=== PATIENT | male | born 1965 | race African-American/Black ===

== ENCOUNTER 2016-05-06 14:20 | Emergency (ER) | payer OTHER ==
[~2016-05-06] VITALS: Ht 172.7 cm; Wt 63.5 kg
[2016-05-06 15:40] LABS: ANION GAP 9 (5-14); CALCIUM, SERUM 8.8 mg/dL (8.5-10.1); CARBON DIOXIDE 34 mmol/L (21-32); CHLORIDE 101 mmol/L (98-107); CREATININE 0.9 mg/dL (0.6-1.3); GFR 107 mL/min (>60); GLUCOSE 89 mg/dL (74-106); POTASSIUM 4.7 mmol/L (3.5-5.1); SODIUM SERUM 139 mmol/L (136-145); UREA NITROGEN, BLOOD 20 mg/dL (7-18)
[2016-05-06 15:46] LABS: BASOPHILS # (AUTO) 0.1 /CMM (0.0-0.2); BASOPHILS % (AUTO) 0.8 % (0.0-2.0); DIFF TOTAL % 100 %; EOSINOPHILS # (AUTO) 0.1 /CMM (0.0-0.7); EOSINOPHILS % (AUTO) 1.4 % (0.0-6.0); HEMATOCRIT 43 % (39-51); HEMOGLOBIN 13.9 g/dL (13.5-17.5); LYMPHOCYTES # (AUTO) 2.7 /CMM (0.8-4.8); LYMPHOCYTES % (AUTO) 40.5 % (20.0-44.0); MEAN CORPUSCULAR HEMOGLOBIN 26 PG (26.0-33.0); MEAN CORPUSCULAR HGB CONC 32 g/dl (31.0-36.0); MEAN CORPUSCULAR VOLUME 81 fL (80-96); MONOCYTES # (AUTO) 0.5 /CMM (0.1-1.30); NEUTROPHILS # (AUTO) 3.3 /CMM (1.8-8.9); NEUTROPHILS % (AUTO) 49.3 % (43.0-81.0); PLATELET COUNT (AUTO) 274 /CMM (150-450); RED BLOOD CELL COUNT(AUTO) 5.37 MIL/uL (4.5-6.0); WHITE BLOOD COUNT (AUTO) 6.8 K/uL (4.3-11.0)
[2016-05-06 15:46] LABS: CANNABINOID, URINE NEGATIVE (NEGATIVE); PHENCYCLIDINE SCREEN,URINE NEGATIVE (NEGATIVE)
[2016-05-06 16:22] VITALS: BP 117/71
== END 2016-05-06 16:24 ==
LOC: ER 14:22
DX: F99 Mental disorder, not otherwise specified (principal); J45.909 Unspecified asthma, uncomplicated; K21.9 Gastro-esophageal reflux disease without esophagitis; F31.9 Bipolar disorder, unspecified; F32.9 Major depressive disorder, single episode, unspecified; M19.90 Unspecified osteoarthritis, unspecified site; F22 Delusional disorders; F17.200 Nicotine dependence, unspecified, uncomplicated; Z90.89 Acquired absence of other organs
CPT/HCPCS: 36415; 80048-TC; 80305; 85025-TC; A4606; G6040-TC; Z7610

== ENCOUNTER 2018-06-20 12:32 | Emergency (ER) | payer OTHER ==
[~2018-06-20] VITALS: Ht 172.7 cm; Wt 65.8 kg
--- NOTE | 2018-06-20 12:48 | NUR ---
PT CAME FOR WOUND CHECK ON LEFT CALF. WOUND IS SMALL, ROUND, WELL-APROXIMATED AND OPEN TO AIR. HAS SOME SCABBING AROUND THE EDGE, -DRAINAGE. PT IS AMBULATORY, NAD, MADE COMFORTABLE. READY FOR EVAL.
--- NOTE | 2018-06-20 12:53 | NUR ---
CALLED [facility] TO FIND A BED FOR PT
[2018-06-20 13:00] LABS: BASOPHILS # (AUTO) 0.1 /CMM (0.0-0.2); BASOPHILS % (AUTO) 0.8 % (0.0-2.0); HEMATOCRIT 45 % (39-51); HEMOGLOBIN 14.3 g/dL (13.5-17.5); LYMPHOCYTES # (AUTO) 1.6 /CMM (0.8-4.8); LYMPHOCYTES % (AUTO) 24.4 % (20.0-44.0); MEAN CORPUSCULAR HGB CONC 32 g/dl (31.0-36.0); MEAN CORPUSCULAR VOLUME 83 fL (80-96); MONOCYTES # (AUTO) 0.5 /CMM (0.1-1.30); MONOCYTES % (AUTO) 7.5 % (2.0-12.0); NEUTROPHILS # (AUTO) 4.3 /CMM (1.8-8.9); NEUTROPHILS % (AUTO) 66.3 % (43.0-81.0); PLATELET COUNT (AUTO) 332 /CMM (150-450); WHITE BLOOD COUNT (AUTO) 6.5 K/uL (4.3-11.0)
--- NOTE | 2018-06-20 13:04 | NUR ---
FOOD TRAY REQUESTED FROM DIETARY
[2018-06-20 13:08] LABS: CALCIUM, SERUM 8.9 mg/dL (8.5-10.1); CARBON DIOXIDE 34 mmol/L (21-32); CHLORIDE 104 mmol/L (98-107); GLUCOSE 74 mg/dL (74-106); SODIUM SERUM 140 mmol/L (136-145); UREA NITROGEN, BLOOD 18 mg/dL (7-18)
--- NOTE | 2018-06-20 13:10 | NUR ---
FOOD TRAY PROVIDED
[2018-06-20 13:13] LABS: ACETAMINOPHEN < 2 ug/ml (10-30); ALANINE AMINOTRANSFERASE 20 U/L (12-78); ALBUMIN 3.4 g/dL (3.4-5.0); ALCOHOL, BLOOD < 3 mg/dL (0-0); ALKALINE PHOSPHATASE 94 U/L (46-116); ASPARTATE AMINOTRANSFERASE 12 U/L (15-37); BILIRUBIN,DIRECT 0.1 mg/dL (0.0-0.2); BILIRUBIN,TOTAL 0.2 mg/dL (0.2-1.0); SALICYLATE 1.3 mg/dL (2.8-20.0); TOTAL PROTEIN, SERUM 6.9 g/dL (6.4-8.2)
--- NOTE | 2018-06-20 13:27 | NUR ---
CALLED [facility] CONFIRMING LAB REPORT RECEIVED
--- NOTE | 2018-06-20 13:48 | NUR ---
URINE COLLECTED AND SENT TO STAT LAB
[2018-06-20 13:52] LABS: APPEARANCE,URINE Hazy (CLEAR); BILIRUBIN,URINE Negative (NEGATIVE); BLOOD, URINE Negative Ery/uL (NEGATIVE); COLOR,URINE Yellow (YELLOW); KETONES,URINE Trace (NEGATIVE); LEUKOCYTE ESTERASE ,URINE Negative (NEGATIVE); NITRITE, URINE Negative (NEGATIVE); PH,URINE 5.5 (5.0-8.0); PROTEIN,URINE Negative (NEGATIVE); UGLUCOSE Negative (NEGATIVE)
[2018-06-20 14:02] LABS: BACTERIA,URINE None seen /HPF (None Seen); SQUAMOUS EPITHELIAL CELL,UR Few /HPF (None Seen); WBC,URINE 0-2 /HPF (0-3)
--- NOTE | 2018-06-20 14:22 | NUR ---
Patient is resting comfortably in bed with eyes closed. Easily aroused. VSS
[2018-06-20 14:43] VITALS: BP 132/78
--- NOTE | 2018-06-20 14:54 | NUR ---
[facility] CONFIRMED THAT THEIR TRANSPORT WILL ARRIVE WITHIN 30 MIN
--- NOTE | 2018-06-20 15:42 | NUR ---
REPORT GIVEN TO LORENZA CHATTERJEE, AND SHANAE AT [facility] FOR DAR
--- NOTE | 2018-06-20 15:45 | NUR ---
PT LEFT WITHOUT SIGNING AND RECEIVING DISCHARGE PAPERS
== END 2018-06-20 15:42 ==
LOC: ER 12:38
DX: F99 Mental disorder, not otherwise specified (principal); J45.909 Unspecified asthma, uncomplicated; K21.9 Gastro-esophageal reflux disease without esophagitis; F31.9 Bipolar disorder, unspecified; F22 Delusional disorders; M19.90 Unspecified osteoarthritis, unspecified site; F17.200 Nicotine dependence, unspecified, uncomplicated; Z98.890 Other specified postprocedural states; Z90.89 Acquired absence of other organs
CPT/HCPCS: 36415; 80048-TC; 80076-TC; 80305; 81000-TC; 85025-TC; G0480

== ENCOUNTER 2018-07-04 15:36 | Emergency (ER) | payer OTHER ==
[~2018-07-04] VITALS: Ht 170.2 cm; Wt 61.2 kg
[2018-07-04 19:13] LABS: BASOPHILS # (AUTO) 0.1 /CMM (0.0-0.2); BASOPHILS % (AUTO) 0.9 % (0.0-2.0); EOSINOPHILS % (AUTO) 1.1 % (0.0-6.0); HEMATOCRIT 44 % (39-51); HEMOGLOBIN 14.1 g/dL (13.5-17.5); LYMPHOCYTES # (AUTO) 2.6 /CMM (0.8-4.8); LYMPHOCYTES % (AUTO) 26.7 % (20.0-44.0); MEAN CORPUSCULAR HGB CONC 32 g/dl (31.0-36.0); MEAN CORPUSCULAR VOLUME 83 fL (80-96); MONOCYTES # (AUTO) 0.7 /CMM (0.1-1.30); MONOCYTES % (AUTO) 7.6 % (2.0-12.0); NEUTROPHILS # (AUTO) 6.1 /CMM (1.8-8.9); NEUTROPHILS % (AUTO) 63.7 % (43.0-81.0); PLATELET COUNT (AUTO) 244 /CMM (150-450); RED BLOOD CELL COUNT(AUTO) 5.33 MIL/uL (4.5-6.0); WHITE BLOOD COUNT (AUTO) 9.6 K/uL (4.3-11.0)
[2018-07-04 19:20] LABS: CARBON DIOXIDE 31 mmol/L (21-32); CHLORIDE 103 mmol/L (98-107); GLUCOSE 118 mg/dL (74-106); POTASSIUM 4.1 mmol/L (3.5-5.1); SODIUM SERUM 138 mmol/L (136-145); UREA NITROGEN, BLOOD 23 mg/dL (7-18)
[2018-07-04 19:26] LABS: ALANINE AMINOTRANSFERASE 63 U/L (12-78); ALBUMIN 3.6 g/dL (3.4-5.0); ALCOHOL, BLOOD < 3 mg/dL (0-0); ALKALINE PHOSPHATASE 86 U/L (46-116); ASPARTATE AMINOTRANSFERASE 29 U/L (15-37); BILIRUBIN,DIRECT 0.1 mg/dL (0.0-0.2); BILIRUBIN,TOTAL 0.2 mg/dL (0.2-1.0); TOTAL PROTEIN, SERUM 6.9 g/dL (6.4-8.2)
[2018-07-04 19:27] LABS: ACETAMINOPHEN 0 ug/ml (10-30); SALICYLATE 1.3 mg/dL (2.8-20.0)
[2018-07-04] MEDS ORDERED: IBUPROFEN 600 MG TABLET PO ONE ×2 (19:30→19:49)
--- NOTE | 2018-07-04 19:56 | NUR ---
Psych "SI x1wk -Plan Traffic. I need medical clearance I went to [facility] earlier and was told I need a medical clearance ". ASSUMED CARE. PT AAOX3, VSS. PT SEEN & EVAL'D BY ABDIFATAH PRIETO. PT CALM & COOPERATIVE, NAD NOTED @ THIS TIME. MEDICATED ORDERED. WILL CONT TO MONITOR. YANET @ BS.
[2018-07-04 20:05] LABS: APPEARANCE,URINE Clear (CLEAR); BILIRUBIN,URINE Negative (NEGATIVE); BLOOD, URINE Trace-intact Ery/uL (NEGATIVE); COLOR,URINE Yellow (YELLOW); KETONES,URINE Negative (NEGATIVE); LEUKOCYTE ESTERASE ,URINE Negative (NEGATIVE); NITRITE, URINE Negative (NEGATIVE); PH,URINE 6.5 (5.0-8.0); PROTEIN,URINE Negative (NEGATIVE); UGLUCOSE Negative (NEGATIVE); UROBILINOGEN,URINE 0.2 EU/dL (0.2)
[2018-07-04 20:32] LABS: BACTERIA,URINE Few /HPF (None Seen); SQUAMOUS EPITHELIAL CELL,UR Few /HPF (None Seen); WBC,URINE 0-2 /HPF (0-3)
[2018-07-04 20:33] LABS: MUCUS,URINE Few /LPF (None Seen)
--- NOTE | 2018-07-04 21:30 | NUR ---
PT CALM, WATCHING TV, NAD NOTED @ THIS TIME. SITTER @ BS.
--- NOTE | 2018-07-04 23:33 | NUR ---
CALLED SINDI TO SET UP [facility] TRANSPORT TRIP#[id number] ETA [phone]
--- NOTE | 2018-07-04 23:44 | NUR ---
PT CALM, WATCHING TV, NAD NOTED @ THIS TIME. SITTER @ BS.
[2018-07-04 23:45] VITALS: BP 127/74
--- NOTE | 2018-07-05 00:04 | NUR ---
REPORT GIVEN TO CARITO HANNA @ [facility] FOR CONT OF CARE.
== END 2018-07-05 00:06 ==
LOC: ER 15:44
DX: R45.851 Suicidal ideations (principal); F32.9 Major depressive disorder, single episode, unspecified; J45.909 Unspecified asthma, uncomplicated; K21.9 Gastro-esophageal reflux disease without esophagitis; F22 Delusional disorders; M19.90 Unspecified osteoarthritis, unspecified site; F17.200 Nicotine dependence, unspecified, uncomplicated; Z90.89 Acquired absence of other organs; Z98.890 Other specified postprocedural states; Z91.011 Allergy to milk products; Z59.0 Homelessness
CPT/HCPCS: 36415; 80048; 80076; 80305; 80307; 80329; 81001; 85025; 99285; G0480; 81000-TC

== ENCOUNTER 2019-04-15 09:21 | Emergency (ER) | payer OTHER ==
[~2019-04-15] VITALS: Ht 170.2 cm; Wt 61.2 kg
--- NOTE | 2019-04-15 09:26 | NUR ---
CAME IM FOR COUGH, FLU LIKE SX, TO ER BED 12, HOOKED TO MONITOR, CHANGED TO HOSP GOW, PROVIDED W JERMAINE SCHWARZ, AWAITING MD DODGE
--- NOTE | 2019-04-15 09:34 | NUR ---
DR BARRERA AT BEDSIDE
[2019-04-15] MEDS ORDERED: IPRATROPIUM NEB FS 0.5 MG/2.5 ML AMPUL.NEB NEB ONE (10:00)
[2019-04-15] MEDS ORDERED: ALBUTEROL FS 2.5 MG/3 ML VIAL.NEB NEB ONE (10:00)
[2019-04-15] MEDS ORDERED: ALBUTEROL FS 2.5 MG/3 ML VIAL.NEB ONE (10:08)
[2019-04-15] MEDS ORDERED: IPRATROPIUM NEB FS 0.5 MG/2.5 ML AMPUL.NEB ONE (10:08)
--- NOTE | 2019-04-15 11:08 | NUR ---
PATIENT CLAIMS TO BE SUICIDAL +PLAN STATES "GUN" UNABLE TO GIVE DETAILS. DR. BARRERA MADE AWARE.
[2019-04-15 11:23] LABS: APPEARANCE,URINE Clear (CLEAR); BILIRUBIN,URINE Negative (NEGATIVE); BLOOD, URINE Trace-intact Ery/uL (NEGATIVE); COLOR,URINE Yellow (YELLOW); KETONES,URINE Negative (NEGATIVE); LEUKOCYTE ESTERASE ,URINE Negative (NEGATIVE); NITRITE, URINE Negative (NEGATIVE); PROTEIN,URINE Negative (NEGATIVE); UGLUCOSE Negative (NEGATIVE); UROBILINOGEN,URINE 0.2 EU/dL (0.2)
[2019-04-15 11:31] LABS: BASOPHILS % (AUTO) 0.4 % (0.0-2.0); EOSINOPHILS % (AUTO) 0.3 % (0.0-6.0); HEMATOCRIT 44 % (39-51); HEMOGLOBIN 13.9 g/dL (13.5-17.5); LYMPHOCYTES # (AUTO) 0.9 /CMM (0.8-4.8); LYMPHOCYTES % (AUTO) 8.4 % (20.0-44.0); MEAN CORPUSCULAR HGB CONC 32 g/dl (31.0-36.0); MEAN CORPUSCULAR VOLUME 82 fL (80-96); MONOCYTES # (AUTO) 0.8 /CMM (0.1-1.30); MONOCYTES % (AUTO) 6.8 % (2.0-12.0); NEUTROPHILS # (AUTO) 9.4 /CMM (1.8-8.9); NEUTROPHILS % (AUTO) 84.1 % (43.0-81.0); PLATELET COUNT (AUTO) 232 /CMM (150-450); RED BLOOD CELL COUNT(AUTO) 5.33 MIL/uL (4.5-6.0); WHITE BLOOD COUNT (AUTO) 11.2 K/uL (4.3-11.0)
[2019-04-15 11:37] LABS: CALCIUM, SERUM 8.8 mg/dL (8.5-10.1); CARBON DIOXIDE 29 mmol/L (21-32); CHLORIDE 99 mmol/L (98-107); CREATININE 0.9 mg/dL (0.6-1.3); GLUCOSE 110 mg/dL (74-106); POTASSIUM 4.3 mmol/L (3.5-5.1); SODIUM SERUM 135 mmol/L (136-145); UREA NITROGEN, BLOOD 13 mg/dL (7-18)
[2019-04-15 11:43] LABS: ALANINE AMINOTRANSFERASE 31 U/L (12-78); ALBUMIN 3.5 g/dL (3.4-5.0); ALCOHOL, BLOOD < 3 mg/dL (0-0); ALKALINE PHOSPHATASE 94 U/L (46-116); ASPARTATE AMINOTRANSFERASE 21 U/L (15-37); BILIRUBIN,TOTAL 0.4 mg/dL (0.2-1.0)
[2019-04-15 11:45] LABS: BACTERIA,URINE Rare /HPF (None Seen); SQUAMOUS EPITHELIAL CELL,UR Few /HPF (None Seen); WBC,URINE NONE SEEN /HPF (0-3)
--- NOTE | 2019-04-15 11:56 | NUR ---
[facility] [phone]
--- NOTE | 2019-04-15 17:46 | NUR ---
PER [facility] JP INTAKE, CLINICALS ARE STILL BEING REVIEWED, NO BED AVAILABLE AT THIS TIME.
--- NOTE | 2019-04-15 20:07 | NUR ---
TRANSFER INFORMATION: PT ACCEPTED TO [facility]. ACCEPTING MD: DR. MALONE/ DR. DUFFY NUMBER FOR REPORT: [phone]
--- NOTE | 2019-04-15 20:29 | NUR ---
ARRANGED TRANSPORT WITH CALL THE CAR. ETA 2 MINS.
--- NOTE | 2019-04-15 21:14 | NUR ---
Sheba vicente in [facility] - 04/15/19 at 2114 by [facility] ETA [phone]
--- NOTE | 2019-04-15 21:14 | NUR ---
[facility] ETA [phone]
[2019-04-15 22:51] VITALS: BP 118/70
--- NOTE | 2019-04-15 22:51 | NUR ---
GAVE REPORT TO [facility] [phone] FOR TRANSPORTATION DAR
== END 2019-04-15 22:52 ==
LOC: ER 09:22
DX: J40 Bronchitis, not specified as acute or chronic (principal); K21.9 Gastro-esophageal reflux disease without esophagitis; F31.9 Bipolar disorder, unspecified; F17.200 Nicotine dependence, unspecified, uncomplicated; M19.90 Unspecified osteoarthritis, unspecified site; Z98.890 Other specified postprocedural states; Z90.89 Acquired absence of other organs; Z91.011 Allergy to milk products; Z59.0 Homelessness
CPT/HCPCS: 36415; 71045-TC; 80053-TC; 80305; 81000-TC; 85025-TC; G0480

== ENCOUNTER 2020-04-13 12:19 | Emergency (ER) | payer OTHER ==
[~2020-04-13] VITALS: Ht 182.9 cm; Wt 63.5 kg
--- NOTE | 2020-04-13 12:30 | NUR ---
Lunch provided ate 100%
--- NOTE | 2020-04-13 13:00 | NUR ---
Called NO response.
[2020-04-13 14:54] LABS: BASOPHILS # (AUTO) 0.1 /CMM (0.0-0.2); EOSINOPHILS % (AUTO) 1.5 % (0.0-6.0); HEMATOCRIT 46 % (39-51); HEMOGLOBIN 14.6 g/dL (13.5-17.5); LYMPHOCYTES # (AUTO) 1.9 /CMM (0.8-4.8); LYMPHOCYTES % (AUTO) 35.2 % (20.0-44.0); MEAN CORPUSCULAR HGB CONC 32 g/dl (31.0-36.0); MEAN CORPUSCULAR VOLUME 84 fL (80-96); MONOCYTES # (AUTO) 0.4 /CMM (0.1-1.30); MONOCYTES % (AUTO) 6.7 % (2.0-12.0); NEUTROPHILS # (AUTO) 2.9 /CMM (1.8-8.9); NEUTROPHILS % (AUTO) 55.6 % (43.0-81.0); PLATELET COUNT (AUTO) 222 /CMM (150-450); RED BLOOD CELL COUNT(AUTO) 5.49 MIL/uL (4.5-6.0); WHITE BLOOD COUNT (AUTO) 5.3 K/uL (4.3-11.0)
--- NOTE | 2020-04-13 15:26 | NUR ---
WAITING IN WR, NO ROOMS AVAILABLE, NAD NOTED, SECURITY IN LINE OF SIGHT
[2020-04-13 15:54] LABS: CALCIUM, SERUM 9.3 mg/dL (8.5-10.1); CARBON DIOXIDE 30 mmol/L (21-32); CHLORIDE 101 mmol/L (98-107); CREATININE 0.9 mg/dL (0.6-1.3); GLUCOSE 99 mg/dL (74-106); POTASSIUM 4.2 mmol/L (3.5-5.1); SODIUM SERUM 136 mmol/L (136-145); UREA NITROGEN, BLOOD 21 mg/dL (7-18)
--- NOTE | 2020-04-13 15:55 | NUR ---
RECEIVED CALL FROM LAB, PT IS COVID (-)
[2020-04-13 15:59] LABS: ALANINE AMINOTRANSFERASE 30 U/L (12-78); ALBUMIN 4.1 g/dL (3.4-5.0); ALCOHOL, BLOOD < 3 mg/dL (0-0); ALKALINE PHOSPHATASE 77 U/L (46-116); ASPARTATE AMINOTRANSFERASE 25 U/L (15-37); BILIRUBIN,DIRECT 0.2 mg/dL (0.0-0.2); BILIRUBIN,TOTAL 0.7 mg/dL (0.2-1.0); TOTAL PROTEIN, SERUM 7.9 g/dL (6.4-8.2)
[2020-04-13 16:00] LABS: ACETAMINOPHEN 0 ug/ml (10-30)
[2020-04-13 16:01] LABS: COLOR,URINE YELLOW (YELLOW); PH,URINE 6.5 (5.0-8.0)
[2020-04-13 16:02] LABS: BILIRUBIN,URINE NEGATIVE (NEGATIVE); LEUKOCYTE ESTERASE ,URINE NEGATIVE (NEGATIVE); NITRITE, URINE NEGATIVE (NEGATIVE); PROTEIN,URINE NEGATIVE (NEGATIVE); UGLUCOSE NEGATIVE (NEGATIVE); UROBILINOGEN,URINE 0.2 EU/dL (0.2)
[2020-04-13 16:03] LABS: BACTERIA,URINE Rare /HPF (None Seen); RBC,URINE 0-2 /HPF (0-2); SQUAMOUS EPITHELIAL CELL,UR Few /HPF (None Seen); WBC,URINE 0-2 /HPF (0-3)
--- NOTE | 2020-04-13 16:16 | NUR ---
Clinicals faxed to [facility]
--- NOTE | 2020-04-13 16:52 | NUR ---
CALLED [facility] TO FOLLOW UP ON CLINICALS. SPOKE TO ART AND CURRENTLY BEING REVIEWED BY MARINE REPORTER AND WILL CALL BACK WITH ANY INFO ON ADMISSION.
[2020-04-13 18:05] VITALS: BP 147/87
--- NOTE | 2020-04-13 18:07 | NUR ---
ACCEPTED BY DR. MALONE AND DIMITRI. WILL GO TO [facility] [phone] HUNTER [employer]KE[employer] PHYSICIAN.
--- NOTE | 2020-04-13 18:12 | NUR ---
CALLED [facility] CALL THE CAR FOR TRANSPORT TO [facility]. RESERVATION NUMBER [phone]. WILL CALL BACK WHEN THEY HAVE ETA AND AMBULANCE PROVIDER.
--- NOTE | 2020-04-13 18:12 | NUR ---
Dinner served. Pt made aware of plan of care. Cooperative. Await transfer
--- NOTE | 2020-04-13 18:32 | NUR ---
CALL THE CAR TRANSFER INFORMATION TRAVELING BUYER AT [phone]
--- NOTE | 2020-04-13 18:34 | NUR ---
REPORT GIVEN TO NURSING TELECOMMUNICATIONS LINE INSTALLER SOHBHA. AWAITING TRANSPORT AMBULANCE.
--- NOTE | 2020-04-13 19:44 | NUR ---
REPORT GIVEN TRANSPORTED TO [facility] STABLE CONDITION.
== END 2020-04-13 19:46 ==
LOC: ER 12:20
DX: F29 Unspecified psychosis not due to a substance or known physiological condition (principal); Z20.828 Contact with and (suspected) exposure to other viral communicable diseases; R79.89 Other specified abnormal findings of blood chemistry; L97.509 Non-pressure chronic ulcer of other part of unspecified foot with unspecified severity; Z59.0 Homelessness; F17.200 Nicotine dependence, unspecified, uncomplicated; Z91.011 Allergy to milk products; F31.9 Bipolar disorder, unspecified; K21.9 Gastro-esophageal reflux disease without esophagitis; J45.909 Unspecified asthma, uncomplicated; G89.29 Other chronic pain; M79.673 Pain in unspecified foot
CPT/HCPCS: 36415; 80048; 80076; 80299; 80307; 80320; 81001; 85025; 87426; 99285; C9803; G0480

== ENCOUNTER 2020-04-14 18:31 | Emergency (ER) | payer OTHER ==
[~2020-04-14] VITALS: Ht 180.3 cm; Wt 59.0 kg
[2020-04-14 18:43] VITALS: BP 154/103
--- NOTE | 2020-04-14 20:05 | NUR ---
DR. PAREDES WITH PATIENT FOR MEDICAL SCREENING EXAM
== END 2020-04-14 21:44 | disposition home or self-care (01) ==
LOC: ER 18:40
DX: F99 Mental disorder, not otherwise specified (principal); J45.909 Unspecified asthma, uncomplicated; K21.9 Gastro-esophageal reflux disease without esophagitis; Z02.89 Encounter for other administrative examinations; Z90.89 Acquired absence of other organs; Z98.890 Other specified postprocedural states; Z91.011 Allergy to milk products; Z59.0 Homelessness